=== PATIENT | male | born 1955 | race Caucasian/White ===

== ENCOUNTER 2017-02-20 20:59 | Emergency (ER) | payer BC ==
[~2017-02-20] VITALS: Ht 175.3 cm; Wt 91.6 kg
[~2017-02-20 20:59] MED LIST: ADVIL200 MG PO; AMBIEN10 MG PO; ASPIR 8181 M1 PO; ATENOLOL50 MG PO; CLARITIN,ALAVAR10 MG PO; COLACE100 MG PO; DICYCLOMINE HCL10 MG PO; HYOSCYAMINE0.125 M2 PO; HYOSCYAMINE0.125 MG PO; LEVOFLOXACIN750 MG PO; METRONIDAZOLE500 MG PO; NORCO 5/3251 TABLET PO; OMEPRAZOLE40 M1 PO; PROVENTIL,2.5 MG/3 M IH; SENNA8.6 MG PO; TAMSULOSIN HCL0.4 MG PO; TRAMADOL HCL50 MG PO; VENTOLIN HFA18 GM IH; XANAX0.25 MG PO
[2017-02-20 22:50] LABS: HEMATOCRIT 40.4 % (38.0-50.0); MCH 30.2 PG (29.0-34.0); MCHC 33.2 G/DL (30.0-36.0); MCV 91.2 FL (86-99); MEAN PLAT.VOLUME 8.9 uM^3 (9.0-12.4); PLATELET COUNT 307 K/uL (156-360); RBC DIS.WIDTH-CV 12.3 % (11.8-14.6); RED BLOOD COUNT 4.43 M/uL (4.00-5.50)
[2017-02-20 23:00] LABS: PROTHROMBIN TIME 10.5 (9.2-11.2); PTT 26.1 (25-32)
[2017-02-20 23:01] LABS: CHLORIDE 105 mEq/L (99-109); POTASSIUM 4.4 mEq/L (3.7-5.4); SODIUM 139 mEq/L (136-147)
[2017-02-20 23:03] LABS: GLUCOSE 111 mg/dL (70-99)
[2017-02-20 23:05] LABS: ANION GAP 8 MEQ/L (2-14)
[2017-02-20 23:07] LABS: GFR ESTIMATE (CALCULATED) > 59 mL/min/
[2017-02-20 23:08] LABS: UREA NITROGEN (BUN) 23 mg/dL (9-23)
[2017-02-21] MEDS ORDERED: NORCO 5/3251 TABLET PO (00:46)
[2017-02-21 01:16] VITALS: BP 142/80
== END 2017-02-21 01:26 | disposition home or self-care (01) ==
LOC: EME 20:59
PROVIDERS: Nurse Practitioner Family
DX: M79.651 Pain in right thigh (principal); Z98.890 Other specified postprocedural states; Z90.79 Acquired absence of other genital organ(s); I10 Essential (primary) hypertension; J44.9 Chronic obstructive pulmonary disease, unspecified; Z79.82 Long term (current) use of aspirin; F17.200 Nicotine dependence, unspecified, uncomplicated
CPT/HCPCS: 80048; 85027; 85610; 85730; 93971; 99281; 99284

== ENCOUNTER 2017-03-01 18:31 | Observation (INO) | payer BC ==
[~2017-03-01] VITALS: Ht 175.3 cm; Wt 89.1 kg
[2017-03-01 21:39] LABS: BASOPHIL COUNT 0.1 K/uL (0-0.1); EOSINOPHIL (%) 3.5 % (0-5); EOSINOPHIL COUNT 0.4 K/uL (0-0.3); HEMATOCRIT 38.7 % (38.0-50.0); IMMATURE GRANULOCYTE (%) 0.3 % (0.0-0.7); INSTRUMENT ABS NEUTROPHIL CT 6.3 K/uL; LYMPHOCYTE COUNT 4.3 K/uL (1.0-2.8); MCH 30.9 PG (29.0-34.0); MCHC 34.4 G/DL (30.0-36.0); MCV 89.8 FL (86-99); MEAN PLAT.VOLUME 8.9 uM^3 (9.0-12.4); MONOCYTE (%) 7.5 % (3-12); MONOCYTE COUNT 0.9 K/uL (0-0.8); NEUTROPHIL (%) 52.3 % (45-76); NEUTROPHIL COUNT 6.3 K/uL (1.8-6.4); PLATELET COUNT 248 K/uL (156-360); RBC DIS.WIDTH-CV 12.2 % (11.8-14.6); RBC DIS.WIDTH-SD 40.6 % (39-53); RED BLOOD COUNT 4.31 M/uL (4.00-5.50); WHITE BLOOD COUNT 12.1 K/uL (4.1-10.2)
[2017-03-01 21:49] LABS: CHLORIDE 104 mEq/L (99-109); POTASSIUM 4.2 mEq/L (3.7-5.4); SODIUM 137 mEq/L (136-147)
[2017-03-01 21:51] LABS: GLUCOSE 91 mg/dL (70-99)
[2017-03-01 21:52] LABS: ANION GAP 8 MEQ/L (2-14)
[2017-03-01 21:54] LABS: GFR ESTIMATE (CALCULATED) > 59 mL/min/
[2017-03-01 21:55] LABS: UREA NITROGEN (BUN) 20 mg/dL (9-23)
[2017-03-01] MEDS ORDERED: IPRATR-ALBUTEROL3 ML IH (23:53)
[2017-03-01] MEDS ORDERED: VENTOLIN HFA18 GM IH (23:53)
[2017-03-01] MEDS ORDERED: RANITIDINE HCL150 MG PO (23:58)
[2017-03-01] MEDS ORDERED: SYMBICORT60 INHALAT IH (23:58)
[2017-03-02 02:03] VITALS: BP 149/84
[2017-03-02 09:01] VITALS: BP 112/68
[2017-03-02 10:37] LABS: HEMATOCRIT 40.4 % (38.0-50.0); MCH 30.8 PG (29.0-34.0); MCHC 33.4 G/DL (30.0-36.0); MEAN PLAT.VOLUME 9.6 uM^3 (9.0-12.4); PLATELET COUNT 267 K/uL (156-360); RBC DIS.WIDTH-CV 12.3 % (11.8-14.6); RBC DIS.WIDTH-SD 41.5 % (39-53); RED BLOOD COUNT 4.39 M/uL (4.00-5.50); WHITE BLOOD COUNT 10.5 K/uL (4.1-10.2)
[2017-03-02 11:03] LABS: ANION GAP 8 MEQ/L (2-14); CHLORIDE 104 MEQ/L (99-109); GFR ESTIMATE (CALCULATED) > 59 mL/min/; POTASSIUM 4.6 MEQ/L (3.7-5.4); SAMPLE HEMOLYSIS CHECK 0; SAMPLE ICTERIC CHECK 0; SAMPLE LIPEMIA CHECK 0; SODIUM 140 MEQ/L (136-147); UREA NITROGEN (BUN) 14 mg/dL (9-23)
[2017-03-02 11:07] LABS: GLUCOSE 115 mg/dL (70-99)
[2017-03-02 12:39] VITALS: BP 112/73
[2017-03-02 15:39] VITALS: BP 124/79
[2017-03-03 00:35] VITALS: BP 114/76
[2017-03-03 06:58] LABS: BASOPHIL COUNT 0.1 K/uL (0-0.1); EOSINOPHIL (%) 1.6 % (0-5); EOSINOPHIL COUNT 0.2 K/uL (0-0.3); HEMATOCRIT 38.2 % (38.0-50.0); IMMATURE GRANULOCYTE (%) 0.5 % (0.0-0.7); IMMATURE GRANULOCYTE COUNT 0.1 K/uL; INSTRUMENT ABS NEUTROPHIL CT 7.8 K/uL; LYMPHOCYTE COUNT 2.5 K/uL (1.0-2.8); MCH 30.9 PG (29.0-34.0); MCHC 33.8 G/DL (30.0-36.0); MCV 91.4 FL (86-99); MEAN PLAT.VOLUME 9.7 uM^3 (9.0-12.4); MONOCYTE (%) 7.6 % (3-12); MONOCYTE COUNT 0.9 K/uL (0-0.8); NEUTROPHIL (%) 67.8 % (45-76); NEUTROPHIL COUNT 7.8 K/uL (1.8-6.4); PLATELET COUNT 239 K/uL (156-360); RBC DIS.WIDTH-CV 12.5 % (11.8-14.6); RBC DIS.WIDTH-SD 41.5 % (39-53); RED BLOOD COUNT 4.18 M/uL (4.00-5.50); WHITE BLOOD COUNT 11.6 K/uL (4.1-10.2)
[2017-03-03 07:18] LABS: ANION GAP 10 MEQ/L (2-14); CHLORIDE 107 MEQ/L (99-109); GFR ESTIMATE (CALCULATED) > 59 mL/min/; GLUCOSE 98 mg/dL (70-99); SAMPLE HEMOLYSIS CHECK 0; SAMPLE ICTERIC CHECK 0; SAMPLE LIPEMIA CHECK 0; SODIUM 140 MEQ/L (136-147); UREA NITROGEN (BUN) 14 mg/dL (9-23)
[2017-03-03 07:52] VITALS: BP 129/77
== END 2017-03-03 14:00 | disposition home or self-care (01) ==
LOC: EME 18:31 → 5SOUTH 03-02 00:11 → EDOF 03-02 00:11 → 5SOUTH 03-02 00:11
PROVIDERS: Emergency Medicine; Hospitalist; Physician Assistant Medical
DX: L03.115 Cellulitis of right lower limb (principal); E11.9 Type 2 diabetes mellitus without complications; E78.5 Hyperlipidemia, unspecified; F17.210 Nicotine dependence, cigarettes, uncomplicated; G47.00 Insomnia, unspecified; I10 Essential (primary) hypertension; I89.0 Lymphedema, not elsewhere classified; K21.9 Gastro-esophageal reflux disease without esophagitis; K58.9 Irritable bowel syndrome, unspecified; R21 Rash and other nonspecific skin eruption; Z85.46 Personal history of malignant neoplasm of prostate; D72.829 Elevated white blood cell count, unspecified; J43.1 Panlobular emphysema
CPT/HCPCS: 80048; 83605; 85025; 85027; 87040; 93971; 94640; 94640 76; 99202; 99281; 99285; G0378; J0690; J1644; J1956